=== PATIENT | male | born 1990 | race African-American/Black ===

== ENCOUNTER 2022-07-22 13:38 | Emergency (ER) | payer OTHER ==
[~2022-07-22] VITALS: Ht 188 cm; Wt 99.8 kg
[2022-07-22] MEDS ORDERED: METHOCARBAMOL500 MG PO (16:17)
== END 2022-07-22 16:32 | disposition home or self-care (01) ==
LOC: ER 13:45
DX: S39.012A Strain of muscle, fascia and tendon of lower back, initial encounter (principal); W01.0XXA Fall on same level from slipping, tripping and stumbling without subsequent striking against object, initial encounter; Y93.01 Activity, walking, marching and hiking; Y92.89 Other specified places as the place of occurrence of the external cause
CPT/HCPCS: 72110; 99283